=== PATIENT | female | born 1995 | race Hispanic/Latino ===

== ENCOUNTER 2019-04-19 14:23 | Emergency (ER) | payer SELFPAY ==
--- NOTE | 2019-04-19 15:02 | EDPHYS ---
Physician Documentation [facility] Name: Vikki Lewis Age: 24 yrs Sex: Female : 1995 Arrival Date: 04/19/2019 Time: 14:26 Bed 23 Private MD: ED Physician Cindy Sousa HPI: 04/19 14:59 This 24 yrs old Female presents to ER via Ambulatory with complaints of ma2 Redness of Eye. 14:59 Onset: The symptoms/episode began/occurred gradually, 2 day(s) ago. Associated signs ma2 and symptoms: Pertinent negatives: dizziness, fever, headache, runny nose. Severity of symptoms: At their worst the symptoms were mild in the emergency department the symptoms are unchanged. The patient has not experienced similar symptoms in the past. 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 - Social history:: Smoking status: Patient/guardian denies using tobacco, Patient/guardian denies using alcohol, street drugs, The patient lives with family. - Ebola Screening: : Patient denies travel to an Ebola-affected area in the 21 days before illness onset. - Family history:: not pertinent. - Hospitalizations: : No recent hospitalization is reported. The patient was recently seen at [facility]. ROS: 14:59 Constitutional: Negative for fever, chills, and weight loss. ma2 14:59 Eyes: Positive for pain, tearing, Negative for acute changes, blurry vision, icterus, injury or acute deformity, itching, photophobia, redness, vision loss. 14:59 All other systems are negative. Exam: 14:59 Visual Acuity: Visual acuity is within normal limits. ma2 14:59 Constitutional: This is a well developed, well nourished patient who is awake, alert, and in no acute distress. 14:59 Neck: Trachea midline, no thyromegaly or masses palpated, and no cervical lymphadenopathy. Supple, full range of motion without nuchal rigidity, or vertebral point tenderness. No Meningismus. Chest/axilla: Normal chest wall appearance and motion. Nontender with no deformity. No lesions are appreciated. Cardiovascular: Regular rate and rhythm with a normal S1 and S2. No gallops, murmurs, or rubs. Normal PMI, no JVD. No pulse deficits. Respiratory: Lungs have equal breath sounds bilaterally, clear to auscultation and percussion. No rales, rhonchi or wheezes noted. No increased work of breathing, no retractions or nasal flaring. Abdomen/GI: Soft, non-tender, with normal bowel sounds. No distension or tympany. No guarding or rebound. No evidence of tenderness throughout. 14:59 Eyes: Periorbital structures: appear normal, Pupils: equal, round, and reactive to light and accomodation, Extraocular movements: intact throughout, Conjunctiva: injected, in the right eye, tearing noted, in right eye, Corneas: are normal, Sclera: no appreciated abnormality, Anterior chamber: normal, Lids and lashes: appear normal, funduscopic exam reveals no obvious abnormalities, Visual cortez: are intact, Nystagmus: is not appreciated, a slit lamp exam was employed for the exam, Intraocular pressure: is normal. Vital Signs: 14:28 BP 147 / 86; Pulse 80; Resp 18; Temp 97.2; Pulse Ox 99% on R/A; Weight 90.72 kg (R); aj1 Height 5 ft. 5 in. (165.10 cm) (R); Pain 4/10; 14:28 Body Mass Index 33.28 (90.72 kg, 165.10 cm) aj1 MDM: 14:30 Patient medically screened. ma2 14:59 Differential diagnosis: Corneal abrasion of Corneal ulcer of Acute iritis of Data ma2 reviewed: vital signs, nurses notes. Counseling: I had a detailed discussion with the patient and/or guardian regarding: the historical points, exam findings, and any diagnostic results supporting the discharge/admit diagnosis, the presence of at least one elevated blood pressure reading (>120/80) during this emergency department visit, the need for outpatient follow up. Response to treatment: the patient's symptoms have resolved after treatment. Administered Medications: No medications were administered Disposition: 04/19/19 15:01 Discharged to Home. Impression: Conjunctivitis. - Condition is Stable. - Prescriptions for ciprofloxacin HCl 0.3 % Ophthalmic drops - instill 2 drop by OPHTHALMIC route every 6 hours for 2 days then 2 drops every 4 hours while awake for 5 days; 1 box. - Medication Reconciliation Form, Thank You Letter, Antibiotic Education, Prescription Opioid Use form. - Follow up: Aditya Humphries MD; When: Tomorrow; Reason: Continuance of care. Signatures: Maria Guadalupe Jay RN RN aj1 Elvira Ferrari RN RN iw Cindy Sousa MD MD ma2 Corrections: (The following items were deleted from the chart) 15:15 15:01 04/19/2019 15:01 Discharged to Home. Impression: Conjunctivitis. Condition is iw Stable. Forms are Medication Reconciliation Form, Thank You Letter, Antibiotic Education, Prescription Opioid Use. Follow up: Aditya Humphries; When: Tomorrow; Reason: Continuance of care. ma2
--- NOTE | 2019-04-19 15:02 | ER ---
Nurse's Notes [facility] Name: Vikki Lewis Age: 24 yrs Sex: Female : 1995 Arrival Date: 04/19/2019 Time: 14:26 Bed 23 Private MD: Diagnosis: Conjunctivitis Presentation: 04/19 14:27 Presenting complaint: Patient states: "Last night and all today it feels like there is aj1 something in my eye and it hurts" Reports pain to right eye. Transition of care: patient was not received from another setting of care. Onset of symptoms was April 19, 2019. Risk Assessment: Do you want to hurt yourself or someone else? Patient reports no desire to harm self or others. Initial Sepsis Screen: Does the patient meet any 2 criteria? No. Patient's initial sepsis screen is negative. Does the patient have a suspected source of infection? No. Patient's initial sepsis screen is negative. Care prior to arrival: None. 14:27 Method Of Arrival: Ambulatory aj 14:27 Acuity: NATHANAEL 4 aj1 Triage Assessment: 14:28 General: Appears in no apparent distress. comfortable, Behavior is calm, cooperative, aj1 appropriate for age. Pain: Complains of pain in right eye. Pain: Pain currently is 4 out of 10 on a pain scale. Neuro: Level of Consciousness is awake, alert, obeys commands, Oriented to person, place, time, situation. Cardiovascular: Patient's skin is warm and dry. Respiratory: Airway is patent Respiratory effort is even, unlabored, Respiratory pattern is regular, symmetrical. 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 - Social history:: Smoking status: Patient/guardian denies using tobacco, Patient/guardian denies using alcohol, street drugs, The patient lives with family. - Ebola Screening: : Patient denies travel to an Ebola-affected area in the 21 days before illness onset. - Family history:: not pertinent. - Hospitalizations: : No recent hospitalization is reported. The patient was recently seen at [facility]. Screenin:00 Abuse screen: Denies threats or abuse. Denies injuries from another. Nutritional iw screening: No deficits noted. Tuberculosis screening: No symptoms or risk factors identified. Fall Risk None identified. Assessment: 14:59 General: Appears in no apparent distress. Behavior is calm, cooperative. Pain: iw Complains of pain in right eye. Neuro: Level of Consciousness is awake, alert, obeys commands, Oriented to person, place, time, situation, Moves all extremities. Cardiovascular: Patient's skin is warm and dry. Respiratory: Respiratory effort is even, unlabored. EENT: Eyes are tearing on outer aspect of conjuctiva of right eye and inner aspect of conjuctiva of right eye Sclera/Cornea are reddened in outer aspect of conjuctiva of right eye and inner aspect of conjuctiva of right eye. Derm: Skin is intact, is healthy with good turgor. Musculoskeletal: Range of motion: intact in all extremities. Vital Signs: 14:28 BP 147 / 86; Pulse 80; Resp 18; Temp 97.2; Pulse Ox 99% on R/A; Weight 90.72 kg (R); aj1 Height 5 ft. 5 in. (165.10 cm) (R); Pain 4/10; 14:28 Body Mass Index 33.28 (90.72 kg, 165.10 cm) aj1 ED Course: 14:26 Patient arrived in ED. mr 14:28 Triage completed. aj1 14:28 Arm band placed on Patient placed in an exam room. aj1 14:30 Cindy Sousa MD is Attending Physician. ma2 14:43 Elvira Ferrari, RN is Primary Nurse. iw 15:00 Patient has correct armband on for positive identification. iw 15:00 Assist provider with eye exam of right eye. using fluorescein stain, Performed by iw Cindy Sousa MD Patient tolerated well. Patient did not have IV access during this emergency room visit. 15:01 Aditya Humphries MD is Referral Physician. ma2 Administered Medications: No medications were administered Outcome: 15:01 Discharge ordered by . ma2 15:14 Discharged to home ambulatory, with family. iw 15:14 Condition: good 15:14 Discharge instructions given to patient, Instructed on discharge instructions, follow up and referral plans. Demonstrated understanding of instructions, follow-up care, medications, Prescriptions given X 1. 15:15 Patient left the ED. iw Signatures: Maria Guadalupe Jay RN RN 1 Za Garibay Irene, RN RN iw Cindy Sousa MD MD dc2
[2019-04-19] MEDS ORDERED: FLUORESCEIN SODIUM 1 MG/WRAP ONE (15:05)
[2019-04-19] MEDS ORDERED: TETRACAINE HCL 0.5% 4ML OPTH ONE (15:05)
== END 2019-04-19 15:15 | disposition home or self-care (01) ==
LOC: ER 14:23
DX: H10.9 Unspecified conjunctivitis (principal)
CPT/HCPCS: 99283